=== PATIENT | female | born 1970 | race Caucasian/White ===

== ENCOUNTER 2025-02-21 15:16 | Outpatient (AMB) | payer BC, SELFPAY ==
--- NOTE | 2025-02-21 15:18 | A.OFFVIS_ITS ---
Vital Signs 02/21/25 15:20 Height 5 ft 3 in Weight 130 lb BMI 23.0 Intake Visit Reasons: [employer]IST-RT shoulder pain Intake Note: Arabella is a 54 year old right hand dominant female who presents today as a new patient for evaluation of right shoulder pain that began December,. Patient reports the pain is located on her right deltoid. Patient shares pain worsens when she tries to bring her arm to her back or when trying to reach objects. Reports numbness and tingling has resolved. Patient state she is not taking anything for pain at this time as the pain only bothers her with some movements. Denies prior injuries or surgeries to the right shoulder. Allergies No Known Allergies Allergy (Verified 02/21/25 15:21) HPI HPI [employer]IST-RT shoulder pain: Details: Arabella is a 54 year old right hand dominant female who presents today as a new patient for evaluation of right shoulder pain that began December,. Patient reports the pain is located on her right shoulder on the posterolateral aspect and radiates down to the volar aspect of the proximal right arm. Patient shares pain worsens when she tries to bring her arm to her back or when trying to reach objects. Reports numbness and tingling has resolved. Patient state she is not taking anything for pain at this time as the pain only bothers her with some movements. Denies prior injuries or surgeries to the right shoulder. [facility] Social History (Updated 02/21/25 @ 15:21 by KARISSA Torres) Patient Tobacco Use Status: Never used Tobacco Current occupational status: employed Current occupation: paraprofesional, right handed Review of Systems Const All systems reviewed & are unremarkable except as noted in HPI and below Physical Exam Vital Signs: BMI result Body Mass Index 23.0 Extrem Other: Patient's right shoulder normal to inspection No erythema, ecchymosis, edema noted No lacerations, abrasions, open areas No evidence of infection Patient reports no tenderness to palpation of the right shoulder Patient is able to forward flex to approximately 120 degrees bilaterally with minimal discomfort in the right shoulder Patient is able to externally rotate to approximately 60 degrees bilaterally, reports pain in the right shoulder beyond this Negative empty can Negative belly press Patient is only able to internally rotate and elevate the hand to approximately T12/L1 Distal sensation intact Capillary refill brisk Office Procedures AMB Joint Injection/Aspiration Joint Injection/Aspiration Primary Site: right shoulder Injected: 80 mg of, DepoMedrol, with 8 mL of and 1% plain lidocaine Procedure: The patient tolerated the procedure well and there was some relief with the local anesthesia Coding - Large joint Procedure code (CPT) selection complete Assessment & Plan Assessment & Plan (1) Internal derangement of right shoulder: Code(s): M24.811 - Other specific joint derangements of right shoulder, not elsewhere classified Category: Medical Plan 1. Internal derangement of right shoulder Patient is educated about this condition Patient is educated about the typical treatment course At this time, patient is referred to physical therapy for range of motion and strengthening in the setting of internal derangement of the right shoulder Patient also states she is interested in steroid injection The risks and benefits of a steroid injection including but not limited to risk of damage to blood vessels, nerves, tendons, infection, skin bleaching, failure to improve symptoms, increased pain, and possible need for further injections or other intervention were discussed with the patient and the patient wishes to proceed with the steroid injection. Once consent was obtained, I aseptically prepped the area over the posterior soft space just below the acromion of the right shoulder. I then injected the area over the lateral epicondyle with a combination of 80 mg of dexamethasone and 8 mL of 1% lidocaine. The patient tolerated the procedure well with no complications. If the patient continues to experience symptoms over the following few weeks or months, they can make an appointment to return and discuss alternative treatment measures, such as physical therapy. Follow-up prn Orders: Orders OT Evaluation and Treatment Today M24.811 - Other specific joint derangements of right shoulder, not elsewhere classified Coding Level of Care Code New Pt Level 3 (92837) Diagnoses Internal derangement of right shoulder M24.811 CPT Codes Coding - Large joint: 21689 - Large joint ([id number])
[2025-02-21 15:20] VITALS: BMI 23.0
--- OUTSIDE RECORDS SUMMARY | 2025-02-21 15:20 | XMS_ITS | Continuity of Care Document ---
Author Organization [facility] Address [address] [facility], [address], [address] [place] [phone] Support Name Relationship Address Phone LAWSON MCKEON spouse Unknown Unavailable MCKEON, LAWSON Personal Relationship Unknown Antonieta vailable MCKEON, LAWSON Personal Relationship Unknown Antonieta vailable MCKEON, LAWSON Personal Relationship Unknown Antonieta vailable MCKEON, LAWSON Personal Relationship Unknown Antonieta vailable MCKEON, LAWSON Personal Relationship Unknown Antonieta vailable MCKEON, LAWSON Personal Relationship Unknown Antonieta vailable MCKEON, LAWSON Personal Relationship Unknown Antonieta vailable MCKEON, LAWSON Personal Relationship Unknown Antonieta vailable MCKEON, LAWSON Personal Relationship Unknown Antonieta vailable MCKEON, LAWSON Personal Relationship Unknown Antonieta vailable MCKEON, LAWSON Personal Relationship Unknown Antonieta vailable MCKEON, LAWSON Personal Relationship Unknown Antonieta vailable MCKEON, LAWSON Personal Relationship Unknown Antonieta vailable MCKEON, LAWSON Personal Relationship Unknown Antonieta vailable MCKEON, LAWSON Personal Relationship Unknown Antonieta vailable MCKEON, LAWSON Personal Relationship Unknown Antonieta vailable MCKEON, LAWSON Personal Relationship Unknown Antonieta vailable Care Team Providers Care Rural Mail Contractor Name Role Phone Kelly SCHMITZ, Dameon Gamino Primary Care Physici an En[place] [facility] [place] Date(s): 01/19/25 - 02/18/25 [facility] [address] [facility] 3rd Floor, [address] [place] [id number] Encounter Type: Triage Allergies, Adverse Reactions, Alerts No Known Allergies Immunizations Given and Recorded Vaccine Date Status Refusal Reason influenza virus vaccine, inactivated 08/08/23 Fady rded influenza virus vaccine, inactivated 09/17/22 Fady rded influenza virus vaccine, inactivated 07/25/20 Fady rded influenza virus vaccine, inactivated 08/27/19 Fady rded influenza virus vaccine, inactivated 08/22/18 Give n influenza virus vaccine, inactivated 08/13/18 Fady rded influenza virus vaccine, inactivated 07/14/17 Fady rded influenza virus vaccine, inactivated 07/31/15 Give n influenza virus vaccine, inactivated 1 09/24/06 Gi radha SARS-CoV-2 (COVID-19) mRNA BNT-162b2 vac 12/16/20 Recorded SARS-CoV-2 (COVID-19) mRNA BNT-162b2 vac 11/25/20 Recorded diphtheria-tetanus toxoids (DT) 2 07/28/15 Given tetanus-diphtheria toxoids (Td) 3 09/24/06 Given 1Admin Note: sanofi pasteur no contraindications 2Admin Note: [facility] 3Admin Note: dph Medications Albuterol (Eqv-Proventil HFA) 90 mcg/inh inhalation aerosol 2 puffs, Inhalation, Every 6 hours, # 18 Gm, 0 Refills, Maintenance, 08/15/24 1:38:00 PM EST, [id number], Partial fill upon patient request if the prescription is for a schedule II opioid drug., 159, cm, 08/15/24 13:18:00 EST, Height, 63, kg, 07/20/23 22:59:00 EDT, Dry Weight Start Date: 08/15/24 Status: Ordered Quantity: 18.0 Unit: g Repeat number: 1 Indication: Other specified cough azithromycin 250 mg oral tablet See Instructions, As directed on package labeling, # 1 pack/packet, 0 Refills, Soft Stop, 08/15/24 1:37:00 PM EST, Tablet, [id number], Partial fill upon patient request if the prescription is for a schedule II opioid drug., 159, cm, 08/15/24 13:18:00 EST, Height, 63, kg, 07/20/23 22:59:00 EDT, Dry Weight Start Date: 08/15/24 Status: Ordered Quantity: 1.0 Unit: pack/packet Repeat number: 1 Calcium And Vitamin D Combination 1 tablet, By Mouth, 2 times a day, 0 Refills, 09/24/06 1:03:16 PM EST Start Date: 09/24/06 Status: Ordered Repeat number: 1 losartan 25 mg oral tablet 1 tablet, By Mouth, Daily, # 90 tablet, 1 Refills, Maintenance, 01/29/25 4:19:00 PM EDT, [id number], 160, cm, 08/22/24 9:40:00 EST, Height, 59, kg, 08/22/24 9:40:00 EST, Dry Weight Start Date: 01/29/25 Status: Ordered Quantity: 90.0 Unit: tablet Repeat number: 2 multivitamin Multiple Vitamins oral capsule 1, capsule, By Mouth, Daily, 0 Refills Start Date: 09/24/06 Status: Ordered Repeat number: 1 PEG-3350 with Electrolytes (Eqv-GoLYTELY) oral powder for reconstitution 240 mL, By Mouth, Every 10 minutes, Split prep method - 1st half gallon 5pm evening of colonoscopy,2nd half of gallon 6 hrs prior to colonoscopy start, # 4,000 mL, 0 Refills, Maintenance, 08/01/24 4:42:00 PM EDT, [id number], Colonoscopy date: 08/22/2024, 240 mL By Mouth Every 10 minutes,Instr:Split prep method - 1st half gallon 5pm evening of colonoscopy, 2nd half of gallon 6 hrs prior to colonoscopy start, 159, cm, 05/25/24 9:35:00 EDT, Height, 63, kg, 07/20/23 22:59:00 EDT, Dry Weight Start Date: 08/01/24 Status: Ordered Quantity: 4000.0 Unit: mL Repeat number: 1 Problem List Condition Confirmation Course Effective Dates Status Health St atus Informant FH: Ischemic heart disease 1 Confirmed Active Hypertension Confirmed Active Cervicalgia Confirmed Active Well adult Confirmed Active 13 or 4 aunts and uncles on mom's side, but not mom Social History Social History Type Response Smoking Status Never smoker entered on: 07/31/15 Sex Sex Representation Female (finding) Patient Care team information Care Team Personnel Name: Dameon Singer Position: S PCO Associate Professional Member Role: PCP Address: [address] [place] [address] [place] [address]- Telecom: Care Team Related Persons Name: LAWSON MCKEON Insurance Providers Guarantor name: ENRIQUE DAWKINSONNELL Health Plan Information #: 1 Payer: [employer] Member Number: NA Policy Number: NA Group Number: NA
--- OUTSIDE RECORDS SUMMARY | 2025-02-21 15:20 | XMS_ITS ---
Author Name [facility] Organization Unknown History of Medication Use Medication Directions Dispensed Refills Start Date End Date Stat albuterol sulfate HFA 90 mcg/actuation aerosol inhaler INHALE 2 PUFFS EVERY 6 HOURS 12/18/2024 completed azithromycin 250 mg tablet TAKE 2 TABLETS BY MOUTH TODAY, THEN TAKE 1 TABLET DAILY FOR 4 DAYS DIRECTED 12/18/2024 completed GaviLyte-G 236 gram-22.74 gram-6.74 gram-5.86 gram oral solution PLEASE SEE ATTACHED FOR DETAILED DIRECTIONS 12/18/2024 completed losartan 12/18/2024 completed prednisone 10 mg tablet TAKE 4 TABS/DAY BY MOUTH X2 DAYS, THEN DECREASE BY 1 TAB EVERY 2 DAYS UNTIL GONE (4,4,3,3,2,2,1,1) 12/18/2024 completed prednisone 20 mg tablet TAKE 1 TABLET BY MOUTH TWICE A DAY FOR 5 DAYS 12/18/2024 completed losartan 25 mg tablet TAKE 1 TABLET BY MOUTH EVERY DAY active Problems Problem Status Onset Date Problem Type Date of Resoluti on Source Cervical radiculitis active 2024-12-01 ProblemAct [facility] Chronic pain of right upper limb active 2025-01-22 ProblemAct [facility] Neck pain active 2024-12-[address] [facility] Encounters Encounter Type Encounter Reason Primary Diagnosis Location Date Ambulatory [facility] [place] 02/16/2025 [facility] [place] 01/15/2025 [facility] [place] 01/12/2025 [facility] [place] 12/19/2024 [facility] [place] 12/18/2024 [facility] [place] 12/01/2024 [facility] [place] 12[facility]01/2024 [facility] [place] 12[facility]01/2024 [facility] [place] 12[facility]01/2024 [facility] [place] 12/01/2024
--- OUTSIDE RECORDS SUMMARY | 2025-02-21 15:20 | XMS_ITS | Data Portability ---
Author Organization [place] [facility] [place] Address [address] [place] [address] Care Team Providers Care Credentialing Coordinator Name Role Phone LEENA PICKERING Primary Care Provider LEENA PICKERING Referring Provider Assessment Encounter Date Assessment Date Assessment LastModified by Organization Details LastModified Time 12/01/2024 12/01/2024 Arabella has right shoulder and arm pain which appears multifactorial. She does appear to have some degree of mild shoulder strain, but more concerning symptoms of cervical radiculitis. Aggravate alleviating factors were discussed. We discussed her paresthesias. Shoulder injury would not cause the paresthesias in most cases. She has had some improvement with Advil, we discussed a trial of prednisone in hopes of offering relief. Hopefully her symptoms will more localized. I would also recommend a trial of physical therapy. I would expect this to be more of a cervical issue. Follow-up in 2 weeks. Patient was seen and evaluated by Mateo Domingo PA-C in indirect conjunction with Dr. Ravi. The provider agrees with the history, physical examination, recommended tests/diagnostic imaging, and treatment plan. [email or web address] Not available 12/21/2024 17:12:12 12/18/2024 12/18/2024 HPI 54-year-old female returns to the office today referred from the urgent care for follow-up evaluation of her swelling 1 month of neck and right shoulder pain with intermittent numbness and tingling to the hand. She does lift weights regularly, however there is no specific trauma or injury recalled. She was treated with prednisone which was incredibly helpful. Her numbness and tingling is very minimal at this point she now has a focal pain in the lateral upper arm motioning around the deltoid. This is particularly tender to touch. She describes a 6 month history of daily pain in the left side of her head that is sometimes fleeting and other time last for hours. This does not feel like a regular headache. She also has occipital pain. She notes this all started after she got the COVID-vaccine but is not necessarily sure the 2 are related. She denies mild myelopathic symptoms. She denies left upper extremity symptoms. EXAM Constitutional: appears well developed, in no acute distress. She appears comfortable. Respiratory: no respiratory distress Cardiovascular: Palpable radial pulses bilaterally. Musculoskeletal: Normal gait Neck: Inspection of the cervical spine is unremarkable, no deformity noted. Nontender to palpation over midline cervical spine or paraspinal musculature. Full ROM. Neurologic: Sensation grossly intact to light touch in bilateral lower extremities. 5/5 strength with shoulder abduction, flexion/extensio n of the elbow and wrist, and finger abduction bilaterally. Non-tender, no palpable masses bilaterally. Full range of motion of the right shoulder. Impingement testing equivocal. She has well-preserved strength. Mild pain with resisted testing in the thumbs up position. She is focally, significantly tender to palpation over the deltoid. Palpable deltoid firing. Marketing Sales Manager strength strong and equal bilaterally. Normal tone in all 4 extremities. Negative Morin? s bilaterally. Negative Clonus bilaterally. Skin: skin intact PLAN 54-year-old female with improving neck and right shoulder pain but persistent focal lateral pain. She has very intermittent numbness and tingling, however this too is improving. She has mild cervical spondylosis. Will refer to physical therapy and see how his symptoms settle out. As far as her headaches, I think the 2 are unrelated. These well predate her current symptoms. She reports no other neurological symptoms however her pain has been persistent. I will send in a referral to neurology to rule out more sinister etiology. Questions invited and answered at length. Patient will return to the office for follow-up in 4 to 5 weeks. Patient was seen and evaluated by Michael Avalos PA-C in indirect conjunction with Osorio Ravi MD. He agrees with history, physical examination, tests/diagnostic imaging, and treatment plan. [email or web address] Not available 12/18/2024 16:25:17 01/22/2025 01/22/2025 HPI 54-year-old female returns to the office today for continued management of neck and right shoulder pain with intermittent numbness and tingling to the hand without specific precipitating event. She reports continued improvement in her symptoms. Her neck and right shoulder pain have calmed down quite a bit. As far as her headaches she never heard from neurology. She did not pursue physical therapy as life got in the way. She has fleeting sharp shoulder pain with abduction movements but outside of this it is not bothersome. She has refrained from going back to lifting or exercising. Her numbness and tingling has largely resolved. EXAM Alert and oriented. Mood/affect appropriate. No acute distress. She ambulates with a nonantalgic gait. She has well-preserved strength of bilateral upper extremities. Full range of motion of the shoulder. She has pain with abduction past 90 degrees. Well-preserved rotator cuff strength Marketing Sales Manager strength strong and equal bilaterally. Normal tone in all 4 extremities. PLAN 54-year-old female with largely improved neck and right shoulder pain. We gave her the information to follow-up with the neurology clinic as she would like to pursue workup of her ongoing headaches. Advised she can return to activities gradually as tolerated. Certainly if she feels like she wants to pursue PT moving forward to happy to give her an updated prescription. She will follow-up with us as needed. Patient was seen and evaluated by Michael Avalos PA-C in indirect conjunction with Osorio Ravi MD. He agrees with history, physical examination, tests/diagnostic imaging, and treatment plan. [email or web address] Not available 01/22/2025 15:44:40 Plan of Treatment Reminders Order Date Submit Date Provider Last Modified By Organization Details Last Modified Time Details Appointments None recorded. Lab None recorded. Referral orthopedic physical therapist referral - Additional Comments: Acute neck pain, resolving radiculopat hy, focal right deltoid TTP, shoulder pain 2024 025 [email or web address] Not available 16:05:13 neurologist referral - Daily left-sided headaches and occipital pain. Persistent 6 months with no improvement 2024 025 [email or web address] Scheduling, [address], [place], [address], 14:28:38 physical therapist referral - Frequency: 2-3 visits per week for 6 weeksTherap y: Evaluate and TreatModali ties:As neededGoal of Therapy: Cervical stabilizati on, myofascial release, strengtheni ng, decreased pain, and progress to home exercise program. Consider traction trial if radicular complaints present. 2024 025 [email or web address] Not available 08:48:06 Procedures None recorded. Surgeries None recorded. Imaging XR, cervical spine, 2 or 3 view [address] [facility], [address], [address], [place], [address], 5 17:48:13 XR, shoulder, 2 or more view [address] [facility], [address], [place], [address], 5 17:48:13 Medication Orders prednisone [address] tablet [address] [id number], [address] [place], [address], 5 15:35:18 Patient TargetsNo targets recorded. Patient Instructions Encounter Date Encounter Id Patient Instructions Last Modified By Organization Details Last Modified Time 12/01/2024 [id number] Radiographs: 2 views of the Cervical Spine were obtained in the {{[place]* [facility]}} office on {{ 12/01/2024#}} including {{AP and Lateral* AP, Lateral, Flexion and Extension}}. X-rays demonstrated {{normal* mild decreased decreased}} bone mineralization. {{Normal alignment Straightene d alignment with loss of the normal lordotic curve* Hyperlordosis Scoliosis}}. {{Disc spaces were well-maintained Decre ased disc space at Decreased disc space at C7-T1#}}. Vertebral height was well-maintained. {{No endplate spurring Spurring at Spurring at C4-C5#}}. {{No evidence of spondylolisthesis or spondylolysis* Spondy lolithesis at}}. No evidence of acute injury or fracture. Radiographs: 4 Views of the {{Right* Left Bilater al}} shoulder were obtained in the {{[place]* [facility]}} office on {{ 12/01/2024#}} including AP, Grashey, Y and axillary views. X-rays demonstrated {{normal* mildly decreased}} bony mineralization. {{No significant* Mild Mod erate Severe}} degenerative changes in the AC joint. Glenohumoral joint space {{well-maintained* mi ldly narrowed moderately narrowed severely narrowed}}{{.* enthes ophytes and degenerative changes in the humeral head.}} {{No abnormal* small large }} calcifications in the lateral shoulder{{.* consiste nt with calcific tendinitis.}} {{No evidence of acute injury or fracture* No evidence of fracture}}. Interpretation by: Mateo Domingo PA-C [email or web address] Not available 12/21/2024 17:11:22 Reason for Referral Physical Therapist Referral for Cervical radiculitis Frequency: 2-3 visits per week for 6 weeksTherapy: Evaluate and TreatModalities:As neededGoal of Therapy: Cervical stabilization, myofascial release, strengthening, decreased pain, and progress to home exercise program. Consider traction trial if radicular complaints present. Referring Physician: Mateo Domingo, Orthopedic Surgery, Encounter Date: 12/01/2024 Additional Comments: Acute n dereck pain, resolving radiculopathy, focal right deltoid TTP, shoulder pain Referring Physician: Michael Avalos, Orthopedic Surgery, Encounter Date: 12/18/2024 Neurologist Referral for Nec k pain Daily left-sided headaches and occipital pain. Persistent 6 months with no improvement Referring Physician: Michael Avalos, Orthopedic Surgery, Encounter Date: 12/18/2024 Problems Name Problem SNOMED Code Status Onset Date Resolution Date Notes Provider Name and Address Organization Details Recorded Time Cervical radiculitis 58896658 Active 2024 MATEO DOMINGO PA-C [address], [place], [address], [place] [facility] 5 17:00:49 Neck pain 13995210 Active 2024 MATEO DOMINGO PA-C [address], [place], [address], [place] [facility] 5 17:08:46 Pain of right shoulder region Active 2024 MATEO DOMINGO PA-C [address], [place], [address], [place] [facility] 5 17:08:46 Chronic pain of right upper limb 5572247787686 9108 Active 2024 MICHAEL AVALOS PA-C [address], [place], [address], [place] [facility] 5 15:45:07 Problem Notes None recorded. Medical Equipment None Reported. Allergies No known drug allergies Medications Name Sig Start Date Stop Date Status Note LastModified by Organization Details LastModified Time prednisone 10 mg tablet TAKE 4 TABS/DAY BY MOUTH X2 DAYS, THEN DECREASE BY 1 TAB EVERY 2 DAYS UNTIL GONE (4,4,3,3, 2,2,1,1) 12/18 completed Not Available Not Available Not Available azithromyci n 250 mg tablet TAKE 2 TABLETS BY MOUTH TODAY, THEN TAKE 1 TABLET DAILY FOR 4 DAYS DIRECTED 12/18 completed Not Available Not Available Not Available prednisone 20 mg tablet TAKE 1 TABLET BY MOUTH TWICE A DAY FOR 5 DAYS 12/18 completed Not Available Not Available Not Available losartan 25 mg tablet TAKE 1 TABLET BY MOUTH EVERY DAY active Not Available Not Available No t Available albuterol sulfate HFA 90 mcg/actuati on aerosol inhaler INHALE 2 PUFFS EVERY 6 HOURS 12/18 completed Not Available Not Available Not Available losartan 12/18 completed Not Available Not Available Not Available GaviLyte-G 236 gram-22.74 gram-6.74 gram-5.86 gram oral solution PLEASE SEE ATTACHED FOR DETAILED DIRECTION S 12/18 completed Not Available Not Available Not Available Vitals Date Recorded Body height Body mass index (BMI) Body weight Provider Name and Address Organization Details Last Updated DateTime 12/01/2024 160.02 cm 23.9 kg/m2 87646.[address] [facility] 12/01/2024 16:22:05 Date Recorded Body height Body mass index (BMI) Body weight Provider Name and Address Organization Details Last Updated DateTime 12/18/2024 160.02 cm 23.7 kg/m2 [address]6722.[address] [place] [facility] 12/18/2024 15:32:34 Date Recorded Body height Body mass index (BMI) Body weight Provider Name and Address Organization Details Last Updated DateTime 01/22/2025 160.02 cm 24.3 kg/m2 75771.15 g [facility] [place] [facility] 01/22/2025 15:17:25 Social History None recorded. Functional Status None recorded. Mental Status None recorded. Family History Relationship Description Onset Age of this Age Resolved Age Notes LastModified by Organization Details LastModified Time Father Blood coagulation disorder [email or web address] Not available 2024 16:21:47 Medical History Condition Response Coronary Artery Disease N Gout N Hyperthyroidism N MRSA N Blood Transfusion N Emphysema N COPD N Depression N Hypothyroidism N Pacemaker N Vascular Disease N Gastrointestinal Disease N Anxiety Disorder N Autoimmune disease N Arthritis N Cancer N Stroke N High Cholesterol N Neurologic Disorder N Liver Disease N Organ Transplant N Arrhythmia N Rheumatoid Arthritis N Fibromyalgia N Kidney Disease N Allergies/Hayfever N Adverse Reaction to Anesthesia N Thyroid Problems N Anemia N Brain Injury N Heart Attack ([place]) N Osteopenia N Diabetes N Bleeding Disorder N Seizures/Epilepsy N AIDS/HIV N Congestive Heart Failure (CHF) N Asthma N Amputation N Reflux/GERD N Sleep Apnea N Hepatitis N Aneurysm N Heart Disease N Pulmonary Embolism N Hypertension Y Osteoporosis N Gynecological HistoryNo gynecological history recorded. Obstetrics History GPAL:G 0 P 0 0 0 0 Past Encounters Encounter ID Performer Location Encounter Start Date Encounter Closed Date Diagnosis/Indication Diagnosis SNOMED-CT Code Diagnosis ICD10 Code Diagnosis Note [id number] BHUPINDER DURBIN [facility] [address] [facility] [place] [address] 12/01/2024 15:42:27 12/01/2024 16:59:03 Pain of right shoulder region 0167844818 M25.511 Neck pain 75405373 M54.2 Cervical radiculitis 110 22432 M54.12 [id number] MICHAEL AVALOS PA-C [facility] [place] [address] [address] 12/18/2024 15:21:37 12/18/2024 16:03:43 Cervical radiculitis 42956792 M54.12 Neck pain 43439428 M54.2 [id number] BHUPINDER AVENDANO [place] [address] [address] 01/22/2025 14:59:58 01/22/2025 15:30:34 Neck pain 90272677 M54.2 Chronic pa in of right upper limb 3453710714 3274311 M25.511 G89.29 Health Concerns Section Related Observation LastModified by Organization Detai ls LastModified Time None Recorded Concern Status LastModified by Organization Details LastModified Time None Recorded Advance Directives Directive None Recorded Payers Encounter Date Sequence Insurance Name Policy Number Policy Farias Covered Member ID Farias Member ID Guarantor Name 12/01/2024 1 [place] [id number] Narinder Dangelo [id number] Arabella Dangelo 12/18/2024 1 [place] [id number] Narinder Dangelo [id number] Arabella Dangelo 01/22/2025 1 [place] [id number] Narinder Dangelo [id number] Arabella Dangelo Notes Date Note Type Note Provider Name and Address Organization Details Recorded Time 12/01/2024 text/html Date of injury 11/28/2024 Patient is a 54-year-old female who presents today with right arm and shoulder pain. Symptoms started on Wednesday when she was on the couch. Her daughter quickly moved her arm and an awkward way and she had discomfort. She has had tingling and itching down her arm since. She feels like her shoulder wants to pop. Injury occurred 3 days ago and has persisted. Her pain is now constant and worsens with certain activities. She has taken Advil which offered some benefit. She is frustrated with her ongoing complaints. Past medical history of hypertension only. She is a paraprofessional. MATEO DOMINGO PA-C [address], [place], [address], [place] [facility] 12/21/2024 17:12:38 OBGyn Episode No OBEpisode recorded.
== END 2025-02-21 15:41 | disposition home or self-care (01) ==
LOC: HO.HOS 15:17
DX: M24.811 Other specific joint derangements of right shoulder, not elsewhere classified (principal)
CPT/HCPCS: 20610; 99203

== ENCOUNTER → 2025-02-21 15:16 | Outpatient (BNVA) | payer BC, SELFPAY | DX: M24.811 Other specific joint derangements of right shoulder, not elsewhere classified (principal) | CPT/HCPCS: 20610; J1010; J2003 ==